=== PATIENT | female | born 1955 | race Caucasian/White ===

== ENCOUNTER → 2017-10-05 | Day surgery (SDC) | payer OTHER | END | disposition home or self-care (01) | LOC: JRADUS-SUR 07:25 | PROC: 0HBU3ZX Excision of Left Breast, Percutaneous Approach, Diagnostic (ICD-10-PCS; principal; 2017-10-05) | DX: N60.82 Other benign mammary dysplasias of left breast (principal); N60.32 Fibrosclerosis of left breast | CPT/HCPCS: 19083; 87899; 88305-TC; A4648 ==

== ENCOUNTER 2020-09-13 05:09 | Day surgery (SDC) | payer OTHER ==
[2020-09-11 11:27] VITALS: BMI 34.4
[2020-09-13 07:32] VITALS: TEMP 98.8
[2020-09-13 09:28] VITALS: BP 125/76; PULSE 65
== END 2020-09-13 09:25 | disposition home or self-care (01) ==
LOC: JASU-ENDO 05:09
PROVIDERS: ATTEND Internal Medicine Gastroenterology
PROC: 0DJD8ZZ Inspection of Lower Intestinal Tract, Via Natural or Artificial Opening Endoscopic (ICD-10-PCS; principal; 2020-09-13 07:52)
DX: Z12.11 Encounter for screening for malignant neoplasm of colon (principal); K64.8 Other hemorrhoids

== ENCOUNTER 2022-07-15 03:55 | Day surgery (SDC) | payer OTHER ==
[2022-07-08 17:28] VITALS: BMI 30.5
[2022-07-15] MEDS ORDERED: PROPOFOL 20 ML ONE (13:47)
[2022-07-15] MEDS ORDERED: MIDAZOLAM HCL 2 MG/2 ML SINGLE DOSE VIAL ONE (13:47)
[2022-07-15] MEDS ORDERED: ceFAZolin SODIUM 1 GM VIAL IVPB ONE (14:00)
[2022-07-15] MEDS ORDERED: ceFAZolin SODIUM 1 GM VIAL ONE ×2 (14:18)
[2022-07-15 14:46] VITALS: RESP 18
[2022-07-15 15:05] VITALS: BP 127/68; PULSE 66; TEMP 98.2
== END 2022-07-15 15:09 | disposition home or self-care (01) ==
LOC: JASU-SURG 03:55
PROVIDERS: ATTEND Urology
PROC: 0TF3XZZ Fragmentation in Right Kidney Pelvis, External Approach (ICD-10-PCS; principal; 2022-07-15 13:00)
DX: N20.0 Calculus of kidney (principal)
CPT/HCPCS: 82962

== ENCOUNTER 2024-03-30 03:59 | Day surgery (SDC) | payer OTHER ==
[2024-03-29 09:12] VITALS: BMI 31.1
[2024-03-30 07:35] VITALS: BP 120/48; PULSE 59; RESP 20; TEMP 97.7
== END 2024-03-30 08:32 | disposition home or self-care (01) ==
LOC: JASU-SURG 03:59
PROVIDERS: ATTEND Urology
DX: Z53.8 Procedure and treatment not carried out for other reasons (principal)
CPT/HCPCS: 82962

== ENCOUNTER 2024-06-18 09:07 | Emergency (ER) | payer OTHER ==
[2024-06-18 09:31] VITALS: BP 124/71; PULSE 82; RESP 18; TEMP 97.6; BMI 32.7
[2024-06-18] MEDS ORDERED: SULFAMETHOXAZOLE/TRIMETHOPRIM 800MG/160MG D.S. TABLET ONE (09:50)
[2024-06-18] MEDS: SULFAMETHOXAZOLE/TRIMETHOPRIM 800MG/160MG D.S. TABLET PO ONE (09:50)
== END 2024-06-18 09:55 | disposition home or self-care (01) ==
LOC: JERFT 09:07
DX: L73.9 Follicular disorder, unspecified (principal)
CPT/HCPCS: 99283-25